=== PATIENT | female | born 1945 | race Caucasian/White ===

== ENCOUNTER 2016-11-02 07:19 | Day surgery (SDC) | payer OTHER, SELFPAY ==
[2016-11-02] VITALS (7 sets, daily range): BP systolic 99–120; BP diastolic 44–92; PULSE 65–79; RESP 16; TEMP 36.1–36.6; O2SAT 97–100; BMI 28.2
--- NOTE | 2016-11-02 | IMM_PTH ---
PAT[place]: [place]VIND [place] [facility] [id number] AGE/SX: 71/F ROOM: RE11/02/[address]: Dr. Sejal Dee MD : 1945 BED: DIS: 11/02/2016 SPEC #: [id number] RECD: 11/03/16 12:42 STATUS: HESHAM REQ #: [id number] BUFFY: 11/02/16 00:[address]: Sejal Dee DEPT: IMMUNOHISTOCHEMISTRY RECD BY: Jo Engle ENTERED: 11/03/16 12:43 SP TYPE: IMMUNO OTHR DR: Dr. Pj Briggs MD Tissues: LYMPH NODE BIOPSY Procedures: CD31 (add) CK8 (add) HER2 HAYLIE (add) MAMM (add) AZ (add) FACTOR VIII (add) Pankeratin (add) GATA3 (add) ER (initial) PHYSICIAN & INSTITUTION [place] [id number] SPECIMEN INFORMATION: Tissue Source: Right supraclavicular lymph node Clinical Info: Right metastatic breast cancer and enlarged supraclavicular lymph node Specimen Number: [id number] CPT code: 23091, 86117 x5, 85970 x3 METHODOLOGY: Deparaffinized sections of prefer/formalin-fixed tissue or PAP/DQ stained slides are incubated with monoclonal/polyclonal antibodies/oligonucleotide probes. Localization is made via biotin free immunoperoxidase method. Appropriate controls are performed and reacted as expected. Results on target cell population are indicated in the following table: RESULTS: ANTIBODY / CLONE RESULT CK8 (31ohztL51) positive AE1-3 (AE1/AE3/PCK26) positive GATA3 (L50-823) positive Mammaglobin (31A5) negative CD31 (LISBETH/70A) negative Factor VIII (R Ag) negative MORPHOMETRIC ANALYSIS ER (clone 6F11) >95%, moderate AZ (clone 16/1E2) 5%, weak Her-2Neu (clone CB11) 0-1+ The prognostic test for HER2 is performed on formalin-fixed paraffin embedded tissue. A 3+ (positive) staining pattern is defined as intense, homogeneous, complete, circumferential membranous staining in >10% of contiguous tumor cells. A similar weak (2+) staining pattern is interpreted as equivocal. ANASTACIO follow-up testing is recommended for all equivocal cases. Positivity/negativity for ER/AZ is reported if > or < 1% of the tumor cells are immuno- reactive, respectively. The ASCO/CAP criteria is used for scoring. Reference: Journal of Clinical Oncology, 2013; 31:7289-6595 & 2010; 16:2096-0711. Duration of fixation: __ Hrs; Sample Adequate: Yes. These assays have not been validated on decalcified tissues. Results should be interpreted with caution given the likelihood of false negativity on decalcified specimens. These tests were developed and their performance characteristics determined by [facility]. They may not have been cleared or approved by the U.S. Food and Drug Administration. The FDA has determined that such clearance or approval is not necessary. INTERPRETATION: Right supraclavicular lymph node, biopsy: Metastatic carcinoma consistent with breast primary. Positive for estrogen receptors (favorable prognostic indicator). Positive for progesterone receptors (favorable prognostic indicator). Negative for overexpression of [id number]. AM:amry 11/04/16
--- NOTE | 2016-11-02 08:49 | OP.PN_ITS ---
Immediate Post-Op Note Date of Procedure: 11/02/16 Primary Surgeon/Physician: Sejal Dee marshmallow runner: NOT,DEFINED Pre-Operative Diagnosis: metastatic breast cancer, right supraclavicular adenopathy Post-Operative Diagnosis: same Surgery/Procedure Performed:: excision of right supraclavicular lymph node Description of Surgical Findings:: enlarged right supraclavicular lymph nodes Estimated Blood Loss: < 1 ml Specimen's removed: right supraclavicular lymph node Type of Anesthesia:: Local MAC ASA Class: ASA2 Mod Systematic Disease - Admit VTE Documentation VTE Present on Admission: Yes VTE Mechan Device Prophylaxis: SCD's
--- NOTE | 2016-11-02 08:49 | PCM.DC.GS ---
Discharge Diet: No Restrictions Discharge Activity: Return to Normal Activity, May not drive while taking narcotic pain medications. Call your doctor if your incision/area has: Continuous Slow Oozing, Foul Smelling Discharge Additional Dressing/Incision Instructions:: Leave dressing in place. May get wet in shower. If falls off, do not replace, leave steristrips on. Do not soak - no tub baths/swimming Additional Instructions: May resume Eliquis tomorrow. Allergies/Adverse Reactions: Allergies No Known Allergies Allergy (Verified 11/02/16 06:49) Medications to take at Discharge Acetaminophen/Codeine #3 [Tylenol#3] 1 tablet PO Q4H PRN PRN #7 tablet 11/02/16 Apixaban [Eliquis] 5 mg PO BID 11/02/16 Atorvastatin Calcium 10 mg PO DAILY 11/02/16 Citalopram [Celexa] 10 mg PO DAILY 11/02/16 Lisinopril [Prinivil] 5 mg PO DAILY 11/02/16 Metoprolol Tartrate [Lopressor (Beta Anh)] 50 mg PO DAILY 11/02/16 The following prescriptions were given: Acetaminophen/Codeine #3 [Tylenol#3] 1 tablet PO Q4H PRN PRN #7 tablet PRN Reason: Pain Primary Care Physician: Pj Briggs MD [Primary Care Provider] - Please Follow Up With: Sejal Dee - call When: to be seen next week by NOHELIA Morris, call for date and time, thank you
--- NOTE | 2016-11-02 08:52 | DCINST_ITS ---
Discharge Diet: No Restrictions Discharge Activity: Return to Normal Activity, May not drive while taking narcotic pain medications. Call your doctor if your incision/area has: Continuous Slow Oozing, Foul Smelling Discharge Additional Dressing/Incision Instructions:: Leave dressing in place. May get wet in shower. If falls off, do not replace, leave steristrips on. Do not soak - no tub baths/swimming Additional Instructions: May resume Eliquis tomorrow. Allergies/Adverse Reactions: Allergies No Known Allergies Allergy (Verified 11/02/16 06:49) Medications to take at Discharge Acetaminophen/Codeine #3 [Tylenol#3] 1 tablet PO Q4H PRN PRN #7 tablet 11/02/16 Apixaban [Eliquis] 5 mg PO BID 11/02/16 Atorvastatin Calcium 10 mg PO DAILY 11/02/16 Citalopram [Celexa] 10 mg PO DAILY 11/02/16 Lisinopril [Prinivil] 5 mg PO DAILY 11/02/16 Metoprolol Tartrate [Lopressor (Beta Anh)] 50 mg PO DAILY 11/02/16 The following prescriptions were given: Acetaminophen/Codeine #3 [Tylenol#3] 1 tablet PO Q4H PRN PRN #7 tablet PRN Reason: Pain Primary Care Physician: Pj Briggs MD [Primary Care Provider] - Please Follow Up With: Sejal Dee - call When: to be seen next week by NOHELIA Morris, call for date and time, thank you
[2016-11-02] MEDS: Bupiv/Epi 0.25% 30 ML Vial (09:12)
--- NOTE | 2016-11-02 09:12 | LYMN_PTH ---
PATIENT: ARAVIND LOC: [facility] – [place] U#:[id number] AGE/SX: 71/F ROOM: RE11/02/[address]: Dr. Sejal Dee MD : 1945 BED: DIS: 11/02/2016 SPEC #: [id number] RECD: 11/02/16 10:26 STATUS: HESHAM MENA #: [id number] BUFFY: 11/02/16 09:[address]: Sejal Dee DEPT: SURGICAL PATHOLOGY RECD BY: Asael Haas ENTERED: 11/02/16 11:58 SP TYPE: LYMPH NODE OTHR DR: Dr. Pj Briggs MD Tissues: LYMPH NODE BIOPSY Procedures: Surgery Specimen Level IV HEADER OPERATION: Lymph node biopsy, supraclavicular PRE-OP DIAGNOSIS: Right metastatic breast cancer and enlarged supraclavicular lymph node TISSUE SUBMITTED: Right supraclavicular lymph node MICROSCOPIC DIAGNOSIS Right supraclavicular lymph node, biopsy: Metastatic carcinoma consistent with breast primary. AM:mary 11/03/16 COMMENT There is extranodal extension of tumor. Reference is made to the patient's lumpectomy with axillary node dissection ([id number]) in which invasive moderately differentiated ductal carcinoma, nuclear grade 2 was identified with 1 out of 13 lymph nodes positive for metastatic carcinoma. MICROSCOPIC DESCRIPTION Slides are reviewed. GROSS DESCRIPTION Received in fixative is one container labeled with the patient's name and designated right supraclavicular lymph node. The specimen consists of a manuel-yellow nodule measuring 1.5 x 1.2 x 1 cm. The specimen is trisected and submitted entirely in one cassette. / SJ:mary 11/02/16 TC:0 CPT: 55782
--- NOTE | 2016-11-02 09:42 | PCM.OPRPT ---
Report of Operation Date of Procedure: 11/02/16 Pre-Operative Diagnosis: metastatic breast cancer, right supraclavicular adenopathy Post-Operative Diagnosis: same Surgery/Procedure Performed:: excision of right supraclavicular lymph node Description of Surgical Findings:: enlarged right supraclavicular lymph nodes glazing machine operator: NOT,DEFINED Type of Anesthesia:: Local MAC Anesthesiologist: Arnaldo Bernabe Specimen's removed: right supraclavicular lymph node Drains: none Estimated Blood Loss (mL): < 1 Fluids Replaced: see anesthesia note Description of Procedure: After informed consent was given, the patient was brought to the operating room and placed in the supine position. Appropriate time out protocol was followed. IV conscious sedation was then administered by the anesthesia provider. The patients upper chest and neck area were then prepped with a surgical skin preparation and sterile surgical drapes were placed. The skin and subcutaneous tissues in and around the lesion were then infiltrated with 1% xylocaine with epinephrine. A skin incision was then made with a 15 blade scalpel overlying the lesion - a right subclavian lymph node. The incision was carried down through to the subcutaneous tissues. Any hemorrhage was controlled with electrocautery. The lesion was palpated and was deep to the platysma and fasica. An incision was made in the fascia. The lymph node was then palpated out and then from the surrounding tissues using blunt and sharp dissection. Any bleeding was controlled by electrocoagulation. The vascular pedicle was ligated with vicryl suture. The lesion was then removed from the cavity and forwarded to pathology for analysis. The cavity was carefully examined, no further suspicious lesions were noted. Hemostasis was achieved with electrocautery. The fascia was reapproximated with interrupted vicryl suture. The skin incision was closed using 4-0 monocryl in a running subcuticular fashion. Steristrips and Cavilon was used to reinforce the skin closure and a proper sterile dressing was applied. The patient tolerated the procedure well and was brought to the Recovery Room in stable condition. - Complications none noted - Admit VTE Documentation VTE Present on Admission: Yes VTE Mechan Device Prophylaxis: SCD's
== END 2016-11-02 10:20 | disposition home or self-care (01) ==
PROVIDERS: Family Provider Internal Medicine; PCP Internal Medicine; Visit Provider Surgery
DX: C77.0 Secondary and unspecified malignant neoplasm of lymph nodes of head, face and neck (principal); C79.51 Secondary malignant neoplasm of bone; I48.2 Chronic atrial fibrillation; F41.9 Anxiety disorder, unspecified; I10 Essential (primary) hypertension; E78.2 Mixed hyperlipidemia; Z85.3 Personal history of malignant neoplasm of breast; Z79.02 Long term (current) use of antithrombotics/antiplatelets; Z79.899 Other long term (current) drug therapy
CPT/HCPCS: 00400; 38500; 88305; 88341; 88342; J7120

== ENCOUNTER 2017-07-06 09:04 | Day surgery (SDC) | payer OTHER, SELFPAY ==
--- NOTE | 2017-07-06 09:11 | EKG12_ITS ---
Test Reason : PRE OP Blood Pressure : / mmHG Vent. Rate : 067 BPM Atrial Rate : 067 BPM P-R Int : 186 ms QRS Dur : 086 ms QT Int : 400 ms P-R-T Axes : 050 008 041 degrees QTc Int : 422 ms Normal sinus rhythm Normal ECG When compared with ECG of 22-MAY-1998 16:04, Criteria for Septal infarct are no longer Present Confirmed by MARLEN MONTIEL, ERIN ([id number]), film and video editor ARELY MCDUFFIE ([id number]) on 07/08/2017 2:29:16 PM Referred By: Johnnie Antony Confirmed By:ERIN GEE MD
[2017-07-06 09:32] VITALS: BP 123/62; PULSE 69; RESP 16; TEMP 36.4; O2SAT 97; BMI 29.2
[2017-07-06 09:44] LABS: Hematocrit 39.8 % (37-47); Hemoglobin 13.1 g/dl (12.0-15.0); Mean Corp Hgb Conc 32.9 g/gl (32-36); Mean Corpuscular Hgb 33.4 pg (27.0-32.0); Mean Corpuscular Volume 101.5 fL (81-99); Mean Platelet Vol. 9.5 fl (6.2-12.0); Platelet Count 216 K/mm3 (150-450); RBC Distribution Width CV 13.3 % (11.6-14.6); RBC Distribution Width SD 49.3 fl (35.1-43.9); Red Blood Count 3.92 M/mm3 (4.2-5.4); Scan Indicated on CBC? Y/N NO; White Blood Count 3.3 K/mm3 (4.4-11.0)
[2017-07-06 09:58] LABS: BUN 13 mg/dL (7-18); BUN/Creat Ratio 12.5 RATIO (10-20); Calcium,Total 8.6 mg/dL (8.5-10.1); Creatinine, Serum 1.04 mg/dL (0.55-1.02); EST Glomerular Filtration Rate 56 mL/min (>60); Est Glom Filt Rate - Afr Amer 67 mL/min (>60); Estimated Creatinine Clearance 41.64 ml/min; Glucose 146 mg/dL (74-106); Potassium 3.8 mmol/L (3.5-5.1); Sodium Level 145 mmol/L (136-145)
[2017-07-06 10:03] LABS: Anion Gap 11 (5-15); Chloride 110 mmol/L (98-107)
[2017-07-06] MEDS: Cefazolin 2 GM in 0.9% Normal Saline 100 ML IV (10:35)
--- NOTE | 2017-07-06 10:47 | PCM.DC.GS ---
Discharge Diet: Light diet - advance as tolerated - if you have questions about your diet instructions, please talk to you doctor. Discharge Activity: May Not Drive - for 1 week or while taking narcotic pain medicine. May shower in (days): 1 Lifting Restrictions: 10 pounds Call your doctor if your incision/area has: Continuous Slow Oozing, Sudden Increased Bleeding, Increased Pain/ Swelling, Increased Redness, Foul Smelling Discharge Call your doctor if you observe: Fever of 101 or Higher Suture Line Care: Avoid Pulling/Pushing, Avoid Pinching/Bending Additional Dressing/Incision Instructions:: Change or remove dressing in 4 days. Leave steri-strips in place for 1 week. Allergies/Adverse Reactions: Allergies No Known Allergies Allergy (Verified 07/05/17 09:24) Medications to take at Discharge Apixaban [Eliquis] 5 mg PO BID 11/02/16 Atorvastatin Calcium 10 mg PO DAILY 11/02/16 Lisinopril [Prinivil] 5 mg PO DAILY 11/02/16 Metoprolol Tartrate [Lopressor (beta genevieve)] 50 mg PO DAILY 11/02/16 coenzyme Q10 10 mg capsule 10 mg PO QDAY cap 05/11/17 escitalopram 5 mg tablet 5 mg PO QDAY 05/11/17 ondansetron HCl 8 mg tablet 8 mg PO Q8H PRN 05/11/17 Tamoxifen [Nolvadex] 20 mg PO DAILY 07/05/17 Hydrocodone Bitart/Apap 5-325 [Hubbard 5MG-325MG] 1 tab PO Q6H PRN PRN 3 Days #6 tab 07/06/17 The following prescriptions were given: Hydrocodone Bitart/Apap 5-325 [Hubbard 5MG-325MG] 1 tab PO Q6H PRN PRN 3 Days #6 tab PRN Reason: Pain Primary Care Physician: Pj Briggs MD [Primary Care Provider] - Please Follow Up With: Johnnie Antony MD - [phone] When: Call to make an appointment to be seen in about 10 days.
[2017-07-06] MEDS: Bupivacaine Mpf 0.5% 30 ML VIAL (10:57)
--- NOTE | 2017-07-06 11:31 | RAD_ITS ---
STUDY: X-RAY CHEST REASON FOR EXAM: Female, 72 years old. Postop from port placement TECHNIQUE: Single AP portable view of the chest. COMPARISON: None. FINDINGS: Right chest wall Mediport with tip in the mid to distal SVC. The lungs are clear and expanded. There is no demonstrated pleural abnormality. Normal size heart. Normal mediastinum and alexis. Normal visualized pulmonary arteries. Normal visualized aortic arch and descending thoracic aorta. Normal visualized thoracic spine. Normal visualized ribs, clavicles, and shoulders. There is no demonstrated abnormality of the visualized soft tissue structures of the upper abdomen. Surgical clips in the right axilla. No pneumothorax. RAD/Chest 1 View (Portable) IMPRESSION: Right chest wall Mediport placement without complications Electronically Signed: Ivan Cai DO at 12:32 EDT Tel , Service support ,
--- NOTE | 2017-07-06 11:31 | PCM.OPRPT ---
Problem List (1) Metastatic breast cancer Status: Acute Report of Operation Date of Procedure: 07/06/17 Pre-Operative Diagnosis: Metastatic breast cancer Post-Operative Diagnosis: Metastatic breast cancer Surgery/Procedure Performed:: Right internal jugular 6 Moldovan PowerPort placement Description of Surgical Findings:: Timeout and informed consent was obtained 72-year-old female was taken the operating place when table. She underwent monitored anesthesia care local anesthetic. Ancef 2 g given intravenous preoperatively. The right neck and chest were sterilely prepped draped. Ultrasound was used to identify the right internal jugular vein. Under ultrasound guidance micropuncture needle was inserted. Micropuncture wire inserted. Then local was instilled down upon the right anterior chest wall. Second intercostal space. Local was instilled. Throughout the procedure a total of 30 cc of 1% lidocaine mixed 50-50 with 0.5% Marcaine was used as local anesthetic. A transverse incision was created using electrocautery subtenons pocket was created. The tubing was then tunneled from the chest to the neck site. Micropuncture sheath was placed over the wire then an 035 J-wire was inserted. Fluoroscopy demonstrated good positioning. The sheath dilator was inserted over the wire the dilator wire removed the catheter was advanced through the sheath the sheath was split the catheter was positioned at the SVC atrial junction. I did need to utilize approximately 4 cc of contrast material to eliminate the catheter. The catheter was then amputated to length was connected to the port secured with port attachment device the port was placed in the pocket and secured there with interrupted 2-0 silk. The skin was closed with interrupted 3-0 Vicryl subdermal stitches. The neck was closed with interrupted 5-0 Vicryl subdermal stitches. Steri-Strips Telfa and OpSite dressings were applied. The port was accessed with a Coy needle. It aspirated easily. It was flushed with saline and then 2 cc of heparinized saline. Sponge instrument and needle counts were reported to the surgeon for correct. Blood loss was minimal. She tired procedure well was taken to the recovery area in satisfactory condition without apparent complication. Stat portable chest x-ray is pending. Johnnie Antony M.D., F.A.C.S. Estimates none. Drains none. Blood loss minimal. Type of Anesthesia:: Local MAC Anesthesiologist: Bill Rasheed
[2017-07-06 11:35] VITALS: BP 123/62; BP 135/73; PULSE 60; RESP 16; TEMP 36.7; O2SAT 99
[2017-07-06 11:40] VITALS: BP 123/62; BP 138/82; PULSE 60; RESP 16; O2SAT 99
[2017-07-06 11:45] VITALS: BP 123/62; BP 124/63; PULSE 62; RESP 16; O2SAT 99
[2017-07-06 11:50] VITALS: BP 114/70; BP 123/62; PULSE 61; RESP 16; TEMP 36.7; O2SAT 95
[2017-07-06 12:00] VITALS: BP 123/62
== END 2017-07-06 12:49 | disposition home or self-care (01) ==
LOC: SDC 09:05 → AC 09:07
PROVIDERS: Family Provider Internal Medicine; PCP Internal Medicine; Visit Provider Surgery
PROC: (CPT 36571; principal; 2017-07-06 11:00)
DX: C79.51 Secondary malignant neoplasm of bone (principal); C77.3 Secondary and unspecified malignant neoplasm of axilla and upper limb lymph nodes; I10 Essential (primary) hypertension; E78.5 Hyperlipidemia, unspecified; I48.91 Unspecified atrial fibrillation; F41.9 Anxiety disorder, unspecified; Z85.3 Personal history of malignant neoplasm of breast; Z79.02 Long term (current) use of antithrombotics/antiplatelets; Z79.899 Other long term (current) drug therapy
CPT/HCPCS: 36571; 36415; 71045; 77001; 80048; 85027; 93005; J7120; C1788

== ENCOUNTER 2018-02-11 10:58 | Emergency (ER) | payer OTHER, SELFPAY ==
[2018-02-11] VITALS (14 sets, daily range): BP systolic 103–138; BP diastolic 65–83; PULSE 69–91; RESP 13–22; TEMP 36.6; O2SAT 94–100; BMI 26.9
--- NOTE | 2018-02-11 11:11 | EKG12_ITS ---
Test Reason : STROKE Blood Pressure : / mmHG Vent. Rate : 083 BPM Atrial Rate : 083 BPM P-R Int : 168 ms QRS Dur : 082 ms QT Int : 382 ms P-R-T Axes : 046 025 045 degrees QTc Int : 448 ms Normal sinus rhythm Normal ECG Confirmed by MARLEN MONTIEL, ERIN ([id number]), general expeditor ARELY MCDUFFIE ([id number]) on 02/16/2018 11:37:30 AM Referred By: OPHELIA Confirmed By:ERIN GEE MD
--- NOTE | 2018-02-11 11:11 | CT_ITS ---
STUDY: CT BRAIN WITHOUT CONTRAST REASON FOR EXAM: Female, 72 years old. Expressive aphasia, history of metastatic brain cancer. RADIATION DOSAGE (If Supplied By Facility): CTDIvol = ( 44.99 ) mGy, DLP = ( 748.30 ) mGycm TECHNIQUE: Transaxial CT imaging of the brain was performed without administration of intravenous contrast material. Individualized dose optimization techniques were used for this CT. COMPARISON: None. FINDINGS: Normal soft tissue structures. There is a focal erosive mass like density in the left frontal there is an erosive appearance of the left side temporal squamous bone. There is involvement of the left side petrous bone. There is a compressed appearance of the left-sided ventricles with slight left to right midline shift. There is a large area of edema within the left temporal lobe extending attending either from or to the basal ganglia. There is an effaced appearance of the left posterior horn. There is minimal evidence of atrophy. There is low attenuating appearance of the left basal ganglia with mass effect on the thalamic region Normal brainstem. There is mild cerebellar atrophy. There is no intracranial hemorrhage. Normal visualized paranasal sinuses. 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 Large area of edema involving the left hemisphere especially the temporal lobe and parietal lobe with effacement of the left ventricles slight midline shift, no hemorrhage. The differential includes vasogenic edema associated metastatic disease or potentially acute infarct with edema. Recommend MRI with gadolinium and MRA. These findings were discussed with Dr. Uriarte and a stat basis in the emergency room. N.B. : The above information has been verbally conveyed by Nalini Ryan MD to Severino Roman on 02/11/2018 11:31:16 (ET). Electronically Signed: Nalini Ryan MD at 11:38 EST Tel , Service support ,
--- NOTE | 2018-02-11 11:13 | NURSING ---
1110 STROKE ALERT CALLED
[2018-02-11 11:25] LABS: Bedside Glucose 239 mg/dL (70-110)
--- NOTE | 2018-02-11 11:38 | CHAPLAIN ---
Type of Pastoral Visit ___ Initial Visit ___ Follow-up Visit ___ On-call Visit ___ General Patient Visit ___ Spiritual Assessment ___ Family Conference ___ Bereavement _x__ Rapid Response ___ Code Blue ___ Other (describe below) Pastoral Care Referral From ___ Patient ___ Family ___ Nurse ___ Physician ___ Concrete Craftsman ___ Community Mental Health Social Worker _x__ Other (describe below) Sacrament/Intervention ___ Active listening ___ Anointing ___ Spiritism ___ Bereavement ___ Communion ___ Pat exploration ___ ___ Life review ___ Prayer ___ Reconciliation ___ Sacrament of Sick _x__ Supportive presence ___ Wedding ___ Other (describe below) Pastoral Comments patient was in testing; spouse is met and offered support; spouse appreciated inquiry but believes all will be fine and no support desired now
--- NOTE | 2018-02-11 11:39 | NURSING ---
PAGED NEUROLOGY AGAIN
--- NOTE | 2018-02-11 11:54 | CM.ED ---
Social Work Note Stroke Alert called, and pt taken to CT. Face to face with pt's spouse, Sriram. Inform that pt was taken to CT and a neurologist would be down shortly, if not already with the pt in [place]. He denies additional questions or concerns. Denies to have SW contact family. Emotional support provided. Climate Change Risk Assessor to check in. Sriram made aware that SW is available if needs arise. Chelle Aly, CAR SEAT UPHOLSTERER, EDUARDO
[2018-02-11 11:56] LABS: International Normalized Ratio 1.2; Prothrombin Time (Protime)PT. 14.7 SECONDS (11.7-14.9)
--- NOTE | 2018-02-11 11:56 | NURSING ---
DR ADLER IN ER
[2018-02-11 11:57] LABS: Partial Thromboplast Time 56.4 Seconds (24.1-36.2)
[2018-02-11 12:04] LABS: Anion Gap 8 (5-15); BUN 16 mg/dL (7-18); BUN/Creat Ratio 13.1 RATIO (10-20); Calcium,Total 8.4 mg/dL (8.5-10.1); Chloride 104 mmol/L (98-107); Creatinine, Serum 1.22 mg/dL (0.55-1.02); EST Glomerular Filtration Rate 46 mL/min (>60); Est Glom Filt Rate - Afr Amer 56 mL/min (>60); Estimated Creatinine Clearance 35.49 ml/min; Glucose 261 mg/dL (74-106); Potassium 3.5 mmol/L (3.5-5.1); Sodium Level 138 mmol/L (136-145)
[2018-02-11 12:05] LABS: Basophil# 0.01 X10^3/uL; Basophil% 0.3 % (0-1); Hematocrit 37.2 % (37-47); Hemoglobin 11.7 g/dl (12.0-15.0); Lymphocyte % 10.7 % (19-41); Mean Corp Hgb Conc 31.5 g/gl (32-36); Mean Corpuscular Volume 85.7 fL (81-99); Neutrophil # 3.01 X10^3/uL (2.7-7.7); Neutrophil % 80.7 % (47-70); Platelet Count 267 K/mm3 (150-450); RBC Distribution Width CV 15.5 % (11.6-14.6); RBC Distribution Width SD 46.9 fl (35.1-43.9); Red Blood Count 4.34 M/mm3 (4.2-5.4); White Blood Count 3.7 K/mm3 (4.4-11.0)
--- NOTE | 2018-02-11 12:08 | PCM.CONS.GEN ---
Reason for Consult Date of Consultation: 02/11/18 Reason for Consultation: stroke team History of Present Illness: The patient is a 72 year old right handed white female with history of metastatic cancer currently on IV chemotherapy, as well as Eliquis which she did not take this morning, will last known well last night prior to bedtime. Awoke this morning at about 9 AM with left eyelid droop and language abnormality which is somewhat improved now. Stroke team was called, CAT scan was performed. She has mass-effect and a large area of vasogenic edema in her left hemisphere, this was felt to be metastatic disease and therefore she is not a candidate for TPA. is at the bedside, he agrees that her symptoms are significantly improved at this point. The patient currently denies a headache, no other triggers, she has been doing well recently. Past Medical History Past Medical History (Chronic Problems): Chronic Problems (Last Reviewed 02/11/18 @ 12:09 by Angelo Sarmiento MD) Hypertension (Chronic) Hyperlipidemia (Chronic) Paroxysmal atrial fibrillation (Chronic) Diabetes mellitus (Chronic) Without mention of complication, type II or unspecified type, not stated as uncontrolled intermediate use of drug (Chronic) Anticoagulant Sinus tachycardia (Chronic) Medical History: Medical History (Last Reviewed 02/11/18 @ 12:09 by Angelo Sarmiento MD) Hypertension (Chronic) I10 Hyperlipidemia (Chronic) E78.5 Paroxysmal atrial fibrillation (Chronic) I48.0 Diabetes mellitus (Chronic) E11.9 Without mention of complication, type II or unspecified type, not stated as uncontrolled buttermaker continuous churn use of drug (Chronic) Z79.899 Anticoagulant Sinus tachycardia (Chronic) R00.0 History of breast cancer Z85.3 S/P tubal ligation Z98.51 Allergies No Known Allergies Allergy (Verified 02/11/18 11:02) Home Medications: Ambulatory Orders Medication Instructions Recorded RX: Atorvastatin Calcium 10 mg PO DAILY 11/02/16 coenzyme Q 10 10 mg capsule 10 mg PO QDAY cap 05/11/17 escitalopram 5 mg tablet 5 mg PO QDAY 05/11/17 ondansetron HCl 8 mg tablet 8 mg PO Q8H PRN 05/11/17 RX: Tamoxifen [Nolvadex] 20 mg PO DAILY 07/05/17 metoprolol tartrate 50 mg tablet 50 mg PO DAILY #90 tab 08/24/17 apixaban 5 mg tablet 5 mg PO BID #60 tab 11/15/17 lisinopril 5 mg tablet 5 mg PO DAILY #30 tab 11/15/17 Surgical History: Surgical History (Last Reviewed 02/11/18 @ 12:09 by Angelo Sarmiento MD) S/P Achilles tendon repair Z98.890 S/P cholecystectomy Z90.49 S/P lymph node biopsy Z98.890 Smoking Status: Never smoker - Physical Exam General: Alert, Oriented x3, Cooperative, No apparent distress Neurological: Cranial nerves II-XII grossly intact, Deep Tendon Reflexes 2+/4 and Symmetrical, Neuro grossly intact, Motor Exam 5/5 strength throughout, - - Very mild occasional word substitutions. Psych/Mental Status: Alert and oriented to time, place, person, mood and affect Vital Signs Temp Pulse Resp BP Pulse Ox 36.6 C 85 16 134/80 H 95 02/11/18 11:00 02/11/18 12:00 02/11/18 12:00 02/11/18 12:00 02/11/18 12:00 Oxygen Flow Rate (L/min) 2 Oxygen Delivery Method Nasal Cannula Weight: 68.946 kg Body Mass Index (BMI) 26.9 Finger Stick Blood Glucose 239 Laboratory Tests Past 24 Hrs 02/11/18 02/11/18 02/11/18 11:35 11:35 11:35 WBC Pending RBC Pending Hgb Pending Hct Pending MCV Pending MCH Pending MCHC Pending RDW Pending RDW Differential Pending Plt Count Pending Neut % (Auto) Pending Absolute Neuts (auto) Pending Total Counted Pending PT Pending INR Pending APTT Pending Sodium 138 Potassium 3.5 Chloride 104 Carbon Dioxide 26.0 Anion Gap 8 BUN 16 Creatinine 1.22 H Estim Creat Clear Calc 35.49 Est GFR (MDRD) Af Amer 56 L Est GFR (MDRD) Non-Af 46 L BUN/Creatinine Ratio 13.1 Glucose 261 H Calcium 8.4 L Troponin I < 0.015 POC Glucose 02/11/18 11:07 POC Glucose 239 H Reviewed the CAT scan of the brain. There is a large area of vasogenic edema with mass-effect and midline shift in the left hemisphere. Assessment/Plan All Active Problems (Last Reviewed 02/11/18 @ 12:09 by Angelo Sarmiento MD) Metastatic breast cancer (Acute) metastatic breast cancer with large left temporal lobe metastasis agree with decadron recommend furhter eval by n/s and heme onc for definitive rx recommend transfer to tertiary care center, pt and currently considering options, pt and aware of urgency and recommendations to be transferred by ambulance
[2018-02-11 12:16] LABS: Differential Indicated SCAN CRITERIA MET; POSITIVE COUNT NO; POSITIVE DIFFERENTIAL YES; POSITIVE MORPHOLOGY NO
--- NOTE | 2018-02-11 12:17 | ED.VISSUMM ---
- ER Visit Summary Date of Service: 02/11/18 Chief Complaint: [Difficulty with speech] History of Present Illness: The patient is a 72 F [presents to the emergency department complaint of difficulty with speech that started this morning around 9:30 AM. Patient's states that she was normal last night around 10:30 PM before going to bed. This morning patient was noted to have a hard time finding words to speak. Patient denies any weakness. She denies any visual changes. Patient does have a history of metastatic breast cancer. Patient is a diabetic. Patient is on Eliquis for history of atrial fibrillation.] Physical Examination: HEENT-PERRLA, EOMI. Cranial nerves II through XII grossly intact. TMs clear. Mucous membranes moist. No adenopathy. Cardiovascular-regular rate and rhythm without murmur or ectopy Lungs-clear to auscultation, chest wall stable without crepitus or subcu emphysema Abdomen-normoactive bowel sounds, soft, nontender, no rebound or rigidity, no peritoneal signs. Neuro ejqd-svjaxu-fugu and heel posadas testing within normal limits, negative Romberg, negative pronator drift, fundi benign. Patient does have an expressive aphasia. NIH stroke scale was a 3. Extremities-intact ?4, normal range of motion, normal pulses, atraumatic] Test Results: [CT scan of the brain without contrast obtained showed vasogenic edema of the left side of the brain suspect metastasis versus acute infarct although more than likely this is metastatic. 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 Patient has small amount of midline shift.] EKG obtained arrival shows sinus rhythm with a ventricular rate of 83 bpm. Chemistries were unremarkable. CBC with differential is pending. Emergency Department Course and Treatment: [I discussed case with neurology Dr. Angelo Sarmiento as well as with Dr. Maico Verma who is on for oncology. It was recommended that we transfer patient to [facility]. Patient is willing to go to the [facility] but does not want to go by ambulance and is refusing transfer by ambulance. I attempted to convince the patient otherwise multiple times as well as her attempting to convince her and she is adamant that she will not go by ambulance. I will discuss case with [facility] and patient will sign out AGAINST MEDICAL ADVICE that she understands my concern about possibility for seizure on the way up to [place] as well as respiratory failure and risk of and disability.] Patient understands my concerns and still makes her own medical decisions. Treatment Plan: [Transfer to [facility]. 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 It may contain incorrect words, spelling, and punctuation that were not noted in review of the chart prior to signing ED Disposition - Plan for ED Patient: Chief Complaint: Neuro S/Sx Referrals: Pj Briggs MD [Primary Care Provider] -
--- NOTE | 2018-02-11 12:22 | ED.RN ---
verbal order form dr lyn to stop [facility] d/t brain mets
--- NOTE | 2018-02-11 12:23 | ED.DCSUM_ITS ---
- ER Visit Summary Date of Service: 02/11/18 Chief Complaint: [Difficulty with speech] History of Present Illness: The patient is a 72 F [presents to the emergency department complaint of difficulty with speech that started this morning around 9:30 AM. Patient's states that she was normal last night around 10:30 PM before going to bed. This morning patient was noted to have a hard time finding words to speak. Patient denies any weakness. She denies any visual changes. Patient does have a history of metastatic breast cancer. Patient is a diabetic. Patient is on Eliquis for history of atrial fibrillation.] Physical Examination: HEENT-PERRLA, EOMI. Cranial nerves II through XII grossly intact. TMs clear. Mucous membranes moist. No adenopathy. Cardiovascular-regular rate and rhythm without murmur or ectopy Lungs-clear to auscultation, chest wall stable without crepitus or subcu emphysema Abdomen-normoactive bowel sounds, soft, nontender, no rebound or rigidity, no peritoneal signs. Neuro pjqv-bnmilu-vkbt and heel posadas testing within normal limits, negative Romberg, negative pronator drift, fundi benign. Patient does have an expressive aphasia. NIH stroke scale was a 3. Extremities-intact ?4, normal range of motion, normal pulses, atraumatic] Test Results: [CT scan of the brain without contrast obtained showed vasogenic edema of the left side of the brain suspect metastasis versus acute infarct although more than likely this is metastatic. 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 Patient has small amount of midline shift.] EKG obtained arrival shows sinus rhythm with a ventricular rate of 83 bpm. Chemistries were unremarkable. CBC with differential is pending. Emergency Department Course and Treatment: [I discussed case with neurology Dr. Angelo Sarmiento as well as with Dr. Maico Verma who is on for oncology. It was recommended that we transfer patient to [facility]. Patient is willing to go to the [facility] but does not want to go by ambulance and is refusing transfer by ambulance. I attempted to convince the patient otherwise multiple times as well as her attempting to convince her and she is adamant that she will not go by ambulance. I will discuss case with [facility] and patient will sign out AGAINST MEDICAL ADVICE that she understands my concern about possibility for seizure on the way up to [place] as well as respiratory failure and risk of and disability.] Patient understands my concerns and still makes her own medical decisions. Treatment Plan: [Transfer to [facility]. 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 It may contain incorrect words, spelling, and punctuation that were not noted in review of the chart prior to signing ED Disposition - Plan for ED Patient: Chief Complaint: Neuro S/Sx Referrals: Pj Briggs MD [Primary Care Provider] -
--- NOTE | 2018-02-11 14:52 | NURSING ---
CALLED [facility] ABOUT BED STATUS. BED STATUS IS TIGHT.
--- NOTE | 2018-02-11 15:51 | ED.DCSUM_ITS ---
- ER Visit Summary Date of Service: 02/11/18 Chief Complaint: [Addendum to initial dictation] History of Present Illness: The patient is a 72 F [patient presented with expressive a aphasia and diagnosed with suspected brain metastasis with vasogenic edema on left side of the brain. Patient initially refused transfer via ambulance to [facility] however ultimately she changed her mind and agreed to allow us to transfer her via ambulance. Patient did not end up signing out AGAINST MEDICAL ADVICE. Patient is currently awaiting bed at [facility] for transfer.] Physical Examination: [] Test Results: [] Emergency Department Course and Treatment: [] Treatment Plan: [] Disposition: [Transfer to [facility]] Impression: [Metastatic lesion left brain with vasogenic edema Expressive a aphasia] This note was generated with [employer] dictation software. It may contain incorrect words, spelling, and punctuation that were not noted in review of the chart prior to signing ED Disposition - Plan for ED Patient: Chief Complaint: Neuro S/Sx Referrals: Pj Briggs MD [Primary Care Provider] -
--- NOTE | 2018-02-11 16:51 | NURSING ---
CALLED [facility], NO BED YET. BED STATUS IS TIGHT
== END 2018-02-11 20:24 | disposition short-term general hospital (02) ==
PROVIDERS: Emergency Provider Emergency Medicine; Family Provider Internal Medicine; PCP Internal Medicine
DX: R47.01 Aphasia (principal); C79.31 Secondary malignant neoplasm of brain; Z85.3 Personal history of malignant neoplasm of breast; I48.0 Paroxysmal atrial fibrillation; I10 Essential (primary) hypertension; E78.5 Hyperlipidemia, unspecified; Z79.01 Long term (current) use of anticoagulants; Z79.899 Other long term (current) drug therapy
CPT/HCPCS: 36591; 70450; 80048; 82962; 84484; 85025; 85610; 85730; 93005; 96365; 96366; 96375; 99284; A4216

== ENCOUNTER → 2018-05-27 08:35 | Outpatient (CLI) | payer OTHER, SELFPAY ==
--- NOTE | 2018-05-27 | IMM_PTH ---
PATIENT: ARAVIND LOC: KAYY U#:[id number] AGE/SX: 79/F ROOM: RE05/27/[address]: Dr. Johnnie Antony MD : 1945 BED: DIS: SPEC #: [id number] RECD: 05/31/18 13:25 STATUS: HESHAM MENA #: [id number] BUFFY: 05/27/18 00:[address]: Johnnie Antony DEPT: IMMUNOHISTOCHEMISTRY RECD BY: Jo Engle ENTERED: 05/31/18 13:26 SP TYPE: IMMUNO OTHR DR: Dr. Pj Briggs MD Tissues: Left breast, NOS Procedures: CALPONIN-1 (add) CK5-6 (add) CK8 (add) E-CAD (add) HER2 HAYLIE (add) LA (add) P40 (add) ER (initial) PHYSICIAN & INSTITUTION [place] [id number] SPECIMEN INFORMATION: Tissue Source: Left breast tissue Clinical Info: Left breast mass Specimen Number: [id number] CPT code: 72946, 82589 x6, 35763 x3 METHODOLOGY: Deparaffinized sections of prefer/formalin-fixed tissue or PAP/DQ stained slides are incubated with monoclonal/polyclonal antibodies/oligonucleotide probes. Localization is made via biotin free immunoperoxidase method. Appropriate controls are performed and reacted as expected. Results on target cell population are indicated in the following table: RESULTS: ANTIBODY / CLONE RESULT P53 (DO-7) positive, 6% dim Ki-67 (30-9) negative CK8 (90lydrU68) positive CK5-6 (D5 & 1684) negative Calponin-1 (NL952P) negative P40 (BC28) negative E-Cad (ECH-6) positive MORPHOMETRIC ANALYSIS ER (clone 6F11) 85%, moderate LA (clone 16/1E2) 3%, weak Her-2Neu (clone CB11) 0-1+ The prognostic test for HER2 is performed on formalin-fixed paraffin embedded tissue. A 3+ (positive) staining pattern is defined as intense, homogeneous, complete, circumferential membranous staining in >10% of contiguous tumor cells. A similar weak (2+) staining pattern is interpreted as equivocal. ANASTACIO follow-up testing is recommended for all equivocal cases. Positivity/negativity for ER/LA is reported if > or < 1% of the tumor cells are immuno- reactive, respectively. The ASCO/CAP criteria is used for scoring. Reference: Journal of Clinical Oncology, 2013; 31:2855-2436 & 2010; 16:5402-8854. Duration of fixation: 60 Hrs; Sample Adequate: Yes. These assays have not been validated on decalcified tissues. Results should be interpreted with caution given the likelihood of false negativity on decalcified specimens. These tests were developed and their performance characteristics determined by [facility]. They may not have been cleared or approved by the U.S. Food and Drug Administration. The FDA has determined that such clearance or approval is not necessary. 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 Positive for estrogen receptors (favorable prognostic indicator). Positive for progesterone receptors (favorable prognostic indicator). Negative for overexpression of GPU0qge. AM:mary 06/01/18
--- NOTE | 2018-05-27 07:30 | BRBX_PTH ---
PATIENT: ARAVIND LOC: KAYY U#:[id number] AGE/SX: 79/F ROOM: RE05/27/[address]: Dr. Johnnie Antony MD : 1945 BED: DIS: SPEC #: [id number] RECD: 05/27/18 08:24 STATUS: HESHAM MENA #: [id number] BUFFY: 05/27/18 07:[address]: Johnnie Antony DEPT: SURGICAL PATHOLOGY RECD BY: Asael Haas ENTERED: 05/27/18 11:35 SP TYPE: BREAST BX OTHR DR: Dr. Pj Briggs MD Tissues: Left breast, NOS Procedures: Special Stain Group II Mucicarmine Stain (control) Surgery Specimen Level IV HEADER OPERATION: Left breast core biopsy PRE-OP DIAGNOSIS: Left breast mass TISSUE SUBMITTED: Left breast tissue ISCHEMIC TIME: 1 minute FIXATION TIME: 60 hours MICROSCOPIC DIAGNOSIS Left breast, core biopsy: Invasive ductal carcinoma with the following characteristics: Maximal length - 9 mm Nuclear grade - 2 AM:mary 05/30/18 COMMENT ER/WV/Zpj4iwh studies are being performed on sections of tumor and the results from this study will be reported separately ([id number]). Mucin stain with matched control is positive highlighting focal signet-ring cell morphology. Case has been reviewed in consultation with Dr. Washington who concurs with the above diagnosis. IDC:SUSAN MICROSCOPIC DESCRIPTION Slides are reviewed. GROSS DESCRIPTION Received in fixative is one container labeled with the patient's name and designated left breast. The specimen consists of two elongated fragments of manuel-yellow fibroadipose tissue each measuring 1 cm in length and 0.1 cm in diameter. The entire specimen is submitted in one cassette. / SUSAN:mary 05/27/18 TC:0 CPT: 92526, 67366
[2018-05-27 07:43] VITALS: BMI 25.7
== END ==
PROVIDERS: Family Provider Internal Medicine; PCP Internal Medicine; Referring Provider Surgery; Visit Provider Surgery
DX: N63.20 Unspecified lump in the left breast, unspecified quadrant (principal)
CPT/HCPCS: 88305; 88313; 88341; 88342

== ENCOUNTER → 2018-07-04 | Outpatient (CLI) | payer OTHER, SELFPAY ==
[2018-05-27 07:43] VITALS: BMI 25.7
--- NOTE | 2018-07-04 10:54 | ECHODONC_ITS ---
Reason For Study: HYPERTENSION Procedure This was a 2D Doppler, Color Flow transthoracic echocardiogram. Myocardial strain analysis was performed in this exam to aid in the assessment of cardiac function. Exam performed in department. Left Ventricle Normal LV size. Left ventricular systolic function is normal. The estimated ejection fraction is 60 %. Stage 1 diastolic dysfunction. No regional wall motion abnormalities noted. Right Ventricle Normal RV size. Normal systolic function. Atria Normal left atrium. Normal right atrium. Mitral Valve Normal mitral valve. Tricuspid Valve Normal tricuspid valve. Mild tricuspid valve insufficiency. Pulmonary artery systolic pressure is 26 mmHg. Aortic Valve Normal aortic valve. Pulmonic Valve Normal pulmonic valve. Great Vessels Normal aortic root. The pulmonary artery is normal size. Normal inferior vena cava. Pericardium/Pleural No pericardial effusion. MMode/2D Measurements & Calculations LVIDd: 4.9 cm IVSd: 0.82 cm Ao root diam: 3.1 cm LVIDs: 3.2 cm LVPWd: 0.96 cm RVDd: 3.0 cm FS: 35.4 % LAV(MOD-bp): 44.1 ml LA A4 area: 17.7 cm2 LA dimension(2D): 2.7 cm LAV(MOD-bp) Indexed: 26.5 ml/m2 LAV(MOD-sp2): 37.5 ml LAV(MOD-sp4): 52.0 ml RA A4 area: 11.6 cm2 Doppler Measurements & Calculations MV E max alden: 41.0 cm/sec Lat Peak E' Alden: 4.1 cm/sec Med Peak E' Alden: 5.2 cm/sec MV A max alden: 55.5 cm/sec E/E' lat: 10.1 E/E' med: 7.8 MV E/A: 0.74 Ao V2 max: 101.9 cm/sec LV V1 max: 91.8 cm/sec PA V2 max: 74.0 cm/sec Ao max P.2 mmHg LV V1 max P.4 mmHg TR max alden: 239.2 cm/sec TR max P.9 mmHg Interpretation Summary Normal LV size. Left ventricular systolic function is normal. The estimated ejection fraction is 60 %. Stage 1 diastolic dysfunction. Mild tricuspid valve insufficiency. The global longitudinal strain is normal. The global longitudinal strain = -21.7 % (normal). Ordering Physician: Feliciano Phelps Referring Physician: Pj Brgigs M.D. Performed By: Neha Rodriguez RDCS, RVT
== END | disposition home or self-care (01) ==
LOC: CVS 10:52
PROVIDERS: Family Provider Internal Medicine; PCP Internal Medicine; Referring Provider Internal Medicine Cardiovascular Disease; Visit Provider Internal Medicine Cardiovascular Disease
DX: I10 Essential (primary) hypertension (principal); C50.919 Malignant neoplasm of unspecified site of unspecified female breast
CPT/HCPCS: 0399T; 93306

== ENCOUNTER 2019-10-26 10:33 | Emergency (ER) | payer OTHER, SELFPAY ==
[2019-06-23 11:57] VITALS: BMI 23.3
[2019-10-26 10:34] VITALS: BP 116/76; PULSE 80; RESP 16; TEMP 36.8; O2SAT 96; BMI 24.3
--- NOTE | 2019-10-26 10:57 | EKG12_ITS ---
Test Reason : ALTERED STATUS Blood Pressure : / mmHG Vent. Rate : 077 BPM Atrial Rate : 077 BPM P-R Int : 174 ms QRS Dur : 082 ms QT Int : 404 ms P-R-T Axes : 046 -17 043 degrees QTc Int : 457 ms Normal sinus rhythm Normal ECG Confirmed by MARLEN MONTIEL, ERIN ([id number]), state editor BELINDA TORRES ([id number]) on 10/31/2019 8:53:58 AM Referred By: LEONOR Confirmed By:ERIN GEE MD
--- NOTE | 2019-10-26 11:20 | ED.VIS.GEN ---
History of Present Illness Chief Complaint: Alt LOC Informant: Patient, Family Narrative: Patient is a 74-year-old female with a past medical history of metastatic breast cancer as well as diabetes who presents to emerge department for altered mental status. The states that around 4:15 AM this morning she was very confused and talking to family members who were not there. She did not sleep very much over the past night. When asked why she states that she was going on a ride with strings coming at her. The states that they did not do anything like this. She has never had this happen before in the past. She does have known metastatic cancer to the brain. She has undergone radiation previously. She is undergoing chemotherapy currently. She was supposed to have gamma knife therapy. It was found that the cancer had spread to many more spots in the brain at her last appointment. Patient currently denying any symptoms whatsoever. Denies any headaches, vision changes. No weakness or loss of sensation in any extremity. No chest pain or shortness of breath. No abdominal pain. No nausea/vomiting. She did have one episode of vomiting yesterday after eating but this since resolved. No fevers or chills. Past Medical History - Allergies and Home Meds Allergies/Adverse Reactions: Allergies No Known Allergies Allergy (Verified 10/26/19 10:38) Primary Care Physician: Chele Barton MD [STAFF PHYSICIAN] - 1 Day Pj Briggs MD [Primary Care Provider] - Prior records reviewed: Yes Past Medical History: - - Metastatic breast cancer, diabetes Smoking Status: Never smoker Review of Systems All systems negative except as indicated General: Denies: Chills, Fever, Sweats Eyes: Denies: Visual changes - bilaterally, Diplopia ENT: Denies: Rhinorrhea, Sore throat Cardiovascular: Denies: Chest pain, Palpitations Respiratory: Denies: Dyspnea, Cough, Dyspnea on exertion Gastrointestinal: Denies: Abdominal pain, Nausea, Vomiting, Diarrhea Genitourinary: Denies: Dysuria, Hematuria, Frequency Musculoskeletal: Denies: Back pain, Extremity Pain Skin: Denies: Rash, Wounds Neurological: Denies: Headache, Weakness, Numbness Physical Exam Vital Signs/Narrative: Vital Signs Temp Pulse Resp BP Pulse Ox 10/26/19 10:34 98.3 F 80 16 116/76 96 Inital Vital Signs reviewed: Yes General: Well nourished, Well developed, No Acute Distress Head: Normocephalic, Atraumatic Eyes: Perrl, EOMI ENT: Moist mucous membranes, No rhinorrhea Neck: Supple, Nontender Cardiovascular: Regular rate, Regular rhythm, No murmurs Respiratory: No distress, CTA bilaterally, Chest nontender Abdomen: Soft, Nontender, Nondistended, Normal bowel sounds Back: Nontender, Normal Inspection Extremities: Nontender, No edema Skin: Normal color, No rash Neurological: Alert, Oriented x3, Cranial nerves II-XII grossly intact, Normal Strength, Normal Sensation, - - Patient speaking in full sentences but her sentences do not make sense at times. Psychological: Normal affect, Normal Mood Diagnostic/Tx/Re-eval - EKG Initial EKG Interpretation: - - Rate of 77 bpm and normal sinus rhythm. Normal intervals. Normal axis. No ST elevations or depressions appreciated. No T wave abnormalities. - Medical Decision Making Patient presents to the emergency department for confusion. She has a known history of metastatic breast cancer to her brain. She has no focal deficits on physical exam. Vital signs within normal limits. I did call and speak with her oncologist. She is currently on dexamethasone 4 mg twice a day. They did recently do a MRI. They do not feel that a repeat MRI is necessary at this time. He did recommend doing a CT scan just to evaluate for hemorrhage. Basic lab work being obtained. The oncologist did recommend increasing her dose of dexamethasone to 4 mg every 6 hours. Lab work did not reveal any metabolic cause for her confusion. She did have evidence of a UTI and we will treat her with Keflex. Her phosphorus was slightly low and I did give a replacement here in the emergency department. She needs to call her oncologist tomorrow to schedule follow-up. If the does not feel comfortable taking care of her at home he can return to the emergency department at anytime. At this time will discharge home in stable condition. They understand and are agreeable with this plan. ED Disposition - Plan for ED Patient: Disposition: Home or Assisted Living Diagnosis: Confusion, Metastatic cancer to brain, UTI (urinary tract infection), Elevated liver enzymes, Hypophosphatemia Instructions: ED Brain Tumor, ED Confusion, ED CYSTITIS Female Adult Prescriptions: Dexamethasone [Decadron] 4 mg PO 4X/DAY 15 Days #60 tab Transmission Status: Received by RITUs[facility] OCONNELL RD Cephalexin [Keflex] 500 mg PO Q12 #14 cap Transmission Status: Received by CHE OCONNELL RD Referrals: Pj Briggs MD [Primary Care Provider] - Chele Barton MD [STAFF PHYSICIAN] - 1 Day
--- NOTE | 2019-10-26 11:24 | CT_ITS ---
STUDY: CT BRAIN WITHOUT CONTRAST REASON FOR EXAM: Female, 74 years old. Pt spouse stated obvious confusion starting 430am today, htn RADIATION DOSAGE (If Supplied By Facility): CTDIvol = ( 60.81 ) mGy, DLP = ( 998.67 ) mGycm TECHNIQUE: Transaxial CT imaging of the brain was performed without administration of intravenous contrast material. Individualized dose optimization techniques were used for this CT. COMPARISON: Comparison is made with prior examination dated 02/11/2018. FINDINGS: Normal soft tissue structures. Stable appearance of the focal erosive changes in the left frontal bone. There is mild cerebral atrophy with widening of the extra-axial spaces and ventricular dilatation. There are areas of decreased attenuation within the white matter tracts of the supratentorial brain, consistent with microvascular disease changes. The previously seen edema and mass effect in the left temporal parietal lobes as result. Normal basal ganglia and thalami. There now is evidence of a punctate calcifications in the mid brain as compared to prior study. Normal cerebellum. There is no intracranial hemorrhage. There are no findings of an acute ischemic infarction. Normal visualized paranasal sinuses. CT/Brain/Head without Contrast IMPRESSION: Chronic involutional changes of the brain. Punctate calcifications in the mid brain at this time. Stable erosive bony changes involving the left frontal bone. Electronically Signed: Delmar Pang, at 12:40 EDT , Service support ,
[2019-10-26 11:34] LABS: Absolute Lymphocyte Count 0.16 X10^3/uL (0.83-4.51); Absolute Neutrophil Count 6.6 X10^3/uL (2.0-7.7); Basophil# 0.03 X10^3/uL; Basophil% 0.4 % (0-1); Eosinophil# 0.01 X10^3/uL; Eosinophils% 0.1 % (0-5); Lymphocyte # 0.16 X10^3/ul (4.0); Lymphocyte % 2.2 % (19-41); Mean Corp Hgb Conc 31.6 g/dL (32-36); Mean Corpuscular Hgb 27.6 pg (27.0-32.0); Mean Corpuscular Volume 87.6 fL (81-99); Mean Platelet Vol. 11.3 fl (6.2-12.0); Monocyte# 0.21 X10^3/uL; Monocyte% 2.9 % (0-10); NRBC Flagged by Analyzer 0 % (0-5); Neutrophil # 6.62 X10^3/uL (2.7-7.7); Neutrophil % 93.1 % (47-70); POSITIVE DIFFERENTIAL YES; POSITIVE MORPHOLOGY YES; Platelet Count 160 K/mm3 (150-450); RBC Distribution Width CV 20.5 % (11.6-14.6); RBC Distribution Width SD 63.3 fl (35.1-43.9); Red Blood Count 4.34 M/mm3 (4.2-5.4); White Blood Count 7.1 K/mm3 (4.4-11.0)
[2019-10-26 11:47] LABS: ALB/GLOB Ratio 0.5 RATIO (0.9-2.4); AST(SGOT) 101 U/L (15-37); Alanine Aminotransfer ALT/SGPT 73 U/L (13-56); Alkaline Phosphatase 429 U/L (45-117); Anion Gap 5 (5-15); BUN 16 mg/dL (7-18); BUN/Creat Ratio 23.5 RATIO (10-20); Calcium,Total 8.3 mg/dL (8.5-10.1); Chloride 110 mmol/L (98-107); Creatinine, Serum 0.68 mg/dL (0.55-1.02); EST Glomerular Filtration Rate 90 mL/min (>60); Est Glom Filt Rate - Afr Amer 109 mL/min (>60); Estimated Creatinine Clearance 40.22 ml/min; Globulin 3.9 g/dL (2.2-4.2); Glucose 193 mg/dL (74-106); Phosphorus 1.7 mg/dL (2.5-4.9); Potassium 4.3 mmol/L (3.5-5.1); Protein, Total 5.9 g/dL (6.4-8.2); Sodium Level 137 mmol/L (136-145)
[2019-10-26 12:05] LABS: Differential Indicated SCAN CRITERIA MET
[2019-10-26 12:06] LABS: Anisocytosis 2+; Burr Cells 1+; Poikilocytosis 1+; Schistocytes 1+
[2019-10-26 12:07] LABS: Platelet Estimate ADEQUATE (ADEQ)
[2019-10-26 12:24] LABS: Mucous, Urine 0 SEEN /hpf (<or=2+); Red Blood Cells-Urine 0 SEEN /hpf (0-5)
[2019-10-26 12:32] LABS: Color, Urine Yellow (Yellow); Glucose, Dipstick Normal (Normal); Ketone-Dipstick 5 mg/dl (Negative); Leukocyte Esterase-Dipstick 500 /ul (Negative); Nitrite-Dipstick Positive (Negative); Occult Blood-Urine 25 /ul (Negative); Protein-Dipstick 30 mg/dl (Negative); Specific Gravity, Urine 1.015 (1.002-1.030); Urine Clarity Sl. Cloudy (Clear); Urine Urobilinogen 4 mg/dl (Normal)
[2019-10-26 12:38] LABS: Urine Bilirubin Dipstick 1 mg/dL (Negative)
[2019-10-26 12:40] LABS: Bacteria 4+ /hpf (None Seen); Squamous Epithelial Cells - UA 25-50 SEEN /hpf (5-10)
[2019-10-26 12:41] LABS: Renal Epithelial Cells 0-5 SEEN /hpf (0-5); White Blood Cells 25-50 SEEN /hpf (0-5)
[2019-10-26 12:49] LABS: Yeast-Urine RARE /hpf (None Seen)
[2019-10-26 13:06] VITALS: BP 124/80; PULSE 78; RESP 16; TEMP 36.8; O2SAT 94
[2019-10-26] MEDS: Na Biphos/Potassium Phosphate PACKET 1 PACKET PO (14:01)
[2019-10-26] MEDS: Cephalexin 250 MG Capsule 500 MG PO (14:01)
== END 2019-10-26 14:08 | disposition home or self-care (01) ==
LOC: ED 11:21
PROVIDERS: Emergency Provider Emergency Medicine; PCP Internal Medicine
DX: R41.0 Disorientation, unspecified (principal); N39.0 Urinary tract infection, site not specified; E83.39 Other disorders of phosphorus metabolism; R94.5 Abnormal results of liver function studies; C79.31 Secondary malignant neoplasm of brain; C50.919 Malignant neoplasm of unspecified site of unspecified female breast; E11.9 Type 2 diabetes mellitus without complications
CPT/HCPCS: 70450; 80053; 81001; 82140; 83735; 84100; 85025; 93005; 99283; A4216

== ENCOUNTER 2019-11-12 09:07 | Emergency (ER) | payer OTHER, SELFPAY ==
[2019-11-12 09:08] VITALS: BP 93/72; PULSE 108; RESP 22; TEMP 35.7; O2SAT 97; BMI 22.6
--- NOTE | 2019-11-12 09:54 | RAD_ITS ---
STUDY: X-RAY CHEST REASON FOR EXAM: Female, 74 years old. Weakness. TECHNIQUE: Frontal view of the chest COMPARISON: 07/06/17 FINDINGS: There is a right-sided port with its tip in the superior vena cava. The lungs are clear. There are no pleural effusions. There is no pneumothorax. The heart is normal in size. The visualized osseous structures are within normal limits. Again noted are surgical clips in the right axilla. RAD/Chest 1 View (Portable) IMPRESSION: No acute thoracic pathology. Electronically Signed: Stewart Field, at 11:16 EDT Tel , Service support ,
--- NOTE | 2019-11-12 10:14 | NURSING ---
CALLED [facility], SHE TOOK INFO AND IS TALKING TO DR NORMAN
[2019-11-12] MEDS: 0.9% Normal Saline 1,000 ML 1000 ML IV (10:29)
--- NOTE | 2019-11-12 10:37 | ED.RN ---
HOSPICE CALLED AND WILL BE CONTACTING THE MOMENTARILY REGARDING HIS WISHES.
[2019-11-12 10:50] LABS: Absolute Lymphocyte Count 0.24 X10^3/uL (0.83-4.51); Absolute Neutrophil Count 18.4 X10^3/uL (2.0-7.7); Basophil# 0.06 X10^3/uL; Basophil% 0.3 % (0-1); Eosinophil# 0.22 X10^3/uL; Eosinophils% 1.1 % (0-5); Hematocrit 43.4 % (37-47); Hemoglobin 14.1 g/dL (12.0-15.0); Lymphocyte # 0.24 X10^3/ul (4.0); Lymphocyte % 1.2 % (19-41); Mean Corp Hgb Conc 32.5 g/dL (32-36); Mean Corpuscular Hgb 27.8 pg (27.0-32.0); Mean Corpuscular Volume 85.4 fL (81-99); Monocyte# 0.32 X10^3/uL; Monocyte% 1.6 % (0-10); NRBC Flagged by Analyzer 0.9 % (0-5); Neutrophil # 18.38 X10^3/uL (2.7-7.7); Neutrophil % 92.8 % (47-70); POSITIVE COUNT YES; POSITIVE DIFFERENTIAL YES; POSITIVE MORPHOLOGY YES; Platelet Count 54 K/mm3 (150-450); RBC Distribution Width CV 21.1 % (11.6-14.6); RBC Distribution Width SD 63.9 fl (35.1-43.9); Red Blood Count 5.08 M/mm3 (4.2-5.4); White Blood Count 19.8 K/mm3 (4.4-11.0)
[2019-11-12 10:51] LABS: Differential Indicated SCAN CRITERIA MET
[2019-11-12 10:58] LABS: ALB/GLOB Ratio 0.5 RATIO (0.9-2.4); AST(SGOT) 290 U/L (15-37); Alanine Aminotransfer ALT/SGPT 211 U/L (13-56); Albumin, Serum 1.9 g/dL (3.2-5.0); Alkaline Phosphatase 616 U/L (45-117); Anion Gap 16 (5-15); BUN 26 mg/dL (7-18); BUN/Creat Ratio 31.4 RATIO (10-20); Calcium,Total 8.1 mg/dL (8.5-10.1); Chloride 102 mmol/L (98-107); Creatinine, Serum 0.83 mg/dL (0.55-1.02); EST Glomerular Filtration Rate 72 mL/min (>60); Est Glom Filt Rate - Afr Amer 87 mL/min (>60); Estimated Creatinine Clearance 48.46 ml/min; Globulin 3.6 g/dL (2.2-4.2); Glucose 235 mg/dL (74-106); Potassium 3.6 mmol/L (3.5-5.1); Protein, Total 5.5 g/dL (6.4-8.2); Sodium Level 137 mmol/L (136-145)
[2019-11-12 11:07] LABS: Anisocytosis 2+; Platelet Estimate MKD DEC (ADEQ); Platelet Morphology LARGE; Polychromasia 1+
[2019-11-12 11:08] LABS: Hypochromasia RARE; Schistocytes RARE; Tear Drop Cell 1+
--- NOTE | 2019-11-12 11:15 | NURSING ---
FAXED CHART TO [facility] [phone]
[2019-11-12 11:21] VITALS: BP 104/61; PULSE 84; RESP 14; O2SAT 96
[2019-11-12] MEDS: dexAMETHasone 4 MG Tablet 10 MG PO (12:28)
--- NOTE | 2019-11-12 12:55 | ED.DCSUM_ITS ---
History of Present Illness Chief Complaint: Weakness Informant: Patient, Family Onset: Weeks Context: Gradual Onset Timing: Continuous Narrative: Patient is a 74-year-old female with history of metastatic breast cancer with mets to brain, liver and bones presenting with generalized weakness is been worsening over the past 2 to 3 weeks. Patient is voluntarily stopped taking her medications over the past week. She states she is just so tired. is planning on calling hospice tomorrow at the advice of her oncologist, Dr. Calderon, but did not know what else to do today so he came to the emergency room. Patient did not have her dexamethasone today because they could not find it so the instead gave 40 mg of prednisone. Patient currently denies any complaints such as fever, chills, chest pain, abdominal pain, nausea, vomiting or urinary symptoms. She states she just feels really tired. states she has had decreased oral intake over the past few days and has had decreased urination over the past day or 2. Bowel movements have been normal. No black or blood in her stool. She has her living will with her which does specify and it that in the event of a terminal condition she does not want any measures that will prolong her life. Patient is asked about this and confirmed that these are her wishes. Past Medical History - Allergies and Home Meds Allergies/Adverse Reactions: Allergies No Known Allergies Allergy (Verified 10/26/19 10:38) Primary Care Physician: Pj Briggs MD [Primary Care Provider] - Past Medical History: - - Static breast cancer, hypertension, hyperlipidemia, proximal A. fib, type 2 diabetes mellitus Surgical History: noncontributory Lives: Spouse/ Significant Other Smoking Status: Never smoker Review of Systems General: Reports: Malaise, Weight loss. Denies: Chills, Fever, Sweats Eyes: Denies: Visual changes - bilaterally, Diplopia ENT: Denies: Rhinorrhea, Sore throat Cardiovascular: Denies: Chest pain, Palpitations Respiratory: Denies: Dyspnea, Cough, Dyspnea on exertion Gastrointestinal: Denies: Abdominal pain, Nausea, Vomiting, Diarrhea, Melena, Hematochezia Genitourinary: Denies: Dysuria, Hematuria, Frequency Musculoskeletal: Denies: Back pain, Extremity Pain Skin: Denies: Rash, Wounds Neurological: Reports: Weakness - Generalized. Denies: Headache, Numbness Physical Exam Vital Signs/Narrative: Vital Signs Temp Pulse Resp BP Pulse Ox 11/12/19 11:21 84 14 104/61 96 11/12/19 09:08 96.3 F L 108 H 22 H 93/72 97 Inital Vital Signs reviewed: Yes General: Well developed, Cachectic, No Acute Distress Head: Normocephalic, Atraumatic Eyes: Perrl, EOMI ENT: No rhinorrhea, Dry mucous membranes Neck: Supple, Nontender Cardiovascular: Regular rate, Regular rhythm, No murmurs Respiratory: No distress, CTA bilaterally, Chest nontender Abdomen: Soft, Nontender, Nondistended, Normal bowel sounds Back: Nontender, Normal Inspection Extremities: Nontender, No edema Skin: Normal color, No rash Neurological: Alert, Oriented x3, Cranial nerves II-XII grossly intact, Normal Strength, Normal Sensation, - - Patient is somnolent but answers all questions appropriately. Psychological: Normal affect, Normal Mood Diagnostic/Tx/Re-eval Clinical Impression(s) from Imaging Studies Chest X-Ray 11/12/19 09:54 IMPRESSION: No acute thoracic pathology. Electronically Signed: Stewart Jamesmillicentjames, at 11:16 EDT Tel , Service support , Laboratory Data 11/12/19 11/12/19 10:25 10:25 WBC 19.8 H RBC 5.08 Hgb 14.1 Hct 43.4 MCV 85.4 MCH 27.8 MCHC 32.5 RDW Std Deviation 63.9 H RDW Coeff of Claudia 21.1 H Plt Count 54 L MPV TNP Immature Gran % (Auto) 3.000 H Neut % (Auto) 92.8 H Lymph % (Auto) 1.2 L [place] % (Auto) 1.6 Eos % (Auto) 1.1 Baso % (Auto) 0.3 Absolute Neuts (auto) 18.4 H Absolute Lymphs (auto) 0.24 L Nucleated RBC % 0.9 Platelet Estimate MKD DEC Plt Morphology Comment LARGE Polychromasia 1+ Hypochromasia RARE Anisocytosis 2+ Tear Drop Cells 1+ Schistocytes RARE Sodium 137 Potassium 3.6 Chloride 102 Carbon Dioxide 19.0 L Anion Gap 16 H BUN 26 H Creatinine 0.83 Estim Creat Clear Calc 48.46 Est GFR (MDRD) Af Amer 87 Est GFR (MDRD) Non-Af 72 BUN/Creatinine Ratio 31.4 H Glucose 235 H Calcium 8.1 L Total Bilirubin 4.50 H AST 290 H ALT 211 H Alkaline Phosphatase 616 H Total Protein 5.5 L Albumin 1.9 L Globulin 3.6 Albumin/Globulin Ratio 0.5 L - Medical Decision Making Patient is evaluated for generalized weakness and overall failure to thrive has been progressing over the past 2 to 3 weeks. Patient has metastatic breast cancer with poor prognosis. Her oncologist had recommended hospice at this point. seems to be at a loss of what else to do for her so he brought to the emergency room today. Patient is insistent that she only wants home hospice and does not want to be in the hospital. Patient does appear to have capacity to make these decisions and will has been does not like these decisions he verbalizes understanding with him. Patient does consent to checking labs and IV fluids while in the emergency room. She does have a new leukocytosis compared to 2 weeks ago however patient is on high-dose steroids because of her brain metastasis. In addition her creatinine is normal but she has worsening transaminitis and elevated bilirubin. Patient denies any cyst abdominal pain. Patient does have known liver metastasis as well. We did contact [facility] who will evaluate the patient and make end-of-life arrangements. Patient states that this is what she wants. I did discuss the case with her oncologist, Dr. Calderon who thinks is appropriate therapy. He did want to continue her dexamethasone therapy however. Patient is given a dose in the emergency room and she has a prescription that was called in yesterday by him at the pharmacy. As patient just seems to want hospice care at this point I do not think an inpatient admission, imaging or further invasive testing would be indicated at this time. She has a grim prognosis given her metastatic disease. ED Disposition - Plan for ED Patient: Disposition: Home or Assisted Living Diagnosis: Generalized weakness, End of life care, Transaminitis, Dehydration Instructions: ED Dehydration Adult Referrals: Pj Briggs MD [Primary Care Provider] - Additional Instructions: Continue to take the steroids as prescribed. Follow-up with hospice as scheduled today.
[2019-11-12 13:01] VITALS: BP 131/57; PULSE 91; RESP 15; O2SAT 96
== END 2019-11-12 13:50 | disposition home or self-care (01) ==
PROVIDERS: Emergency Provider Emergency Medicine; PCP Internal Medicine
DX: E86.0 Dehydration (principal); R53.1 Weakness; R74.0 Nonspecific elevation of levels of transaminase and lactic acid dehydrogenase [LDH]; C79.31 Secondary malignant neoplasm of brain; C78.7 Secondary malignant neoplasm of liver and intrahepatic bile duct; C79.51 Secondary malignant neoplasm of bone; C50.919 Malignant neoplasm of unspecified site of unspecified female breast; E78.5 Hyperlipidemia, unspecified; I10 Essential (primary) hypertension; E11.9 Type 2 diabetes mellitus without complications
CPT/HCPCS: 36591; 71045; 80053; 85025; 96360; 96361; 99285; A4216